=== PATIENT | male | born 1985 | race African-American/Black ===

== ENCOUNTER 2024-01-07 07:04 | Emergency (ER) | payer OTHER ==
[~2024-01-07] VITALS: Ht 185.4 cm; Wt 102.1 kg
[2024-01-07 08:05] VITALS: BP 136/104; PULSE 65; RESP 18; TEMP 98.4; O2SAT 98
[2024-01-07] MEDS ORDERED: IBUP-1456 PO (08:09)
== END 2024-01-07 08:15 | disposition home or self-care (01) ==
LOC: ER 07:04
DX: M23.91 Unspecified internal derangement of right knee (principal); F15.90 Other stimulant use, unspecified, uncomplicated; Z79.899 Other long term (current) drug therapy
CPT/HCPCS: 73562